=== PATIENT | female | born 1955 | race Caucasian/White ===

== ENCOUNTER 2018-01-15 06:10 | Emergency (ER) | payer MEDICARE, BC ==
[~2018-01-15] VITALS: Ht 170.2 cm; Wt 69.2 kg
[2018-01-15] MEDS ORDERED: LORazepam 1MG TABLET ONE (06:53)
[2018-01-15 06:59] LABS: BASOPHILS # (AUTO) 0.07 x10^3/uL (0-0.1); BASOPHILS % (AUTO) 1 % (0-1); EOSINOPHILS # (AUTO) 0.14 x10^3/uL (0-0.4); EOSINOPHILS % (AUTO) 2 % (1-7); LYMPHOCYTES # (AUTO) 2.73 x10^3/uL (1-3.4); LYMPHOCYTES % (AUTO) 34 % (22-44); MD NO; MEAN CORPUSCULAR HEMOGLOBIN 30.9 pg (27.0-34.8); MEAN CORPUSCULAR HGB CONC 34.2 g/dL (32.4-35.8); MEAN CORPUSCULAR VOLUME 90.5 fL (80-100); MEAN PLATELET VOLUME 7.2 fL (7.4-10.4); MONOCYTES # (AUTO) 0.54 x10^3/uL (0.2-0.8); MONOCYTES % (AUTO) 7 % (2-9); NEUTROPHILS # (AUTO) 4.48 x10^3/uL (1.8-6.8); NEUTROPHILS % (AUTO) 56 % (42-75); PLATELET COUNT 314 x10^3/uL (130-400); RED BLOOD COUNT 3.94 x10^6/uL (3.82-5.3)
[2018-01-15] MEDS ORDERED: LORazepam 1MG TABLET PO ONE (07:00)
[2018-01-15 07:12] LABS: ALANINE AMINOTRANSFERASE 20 U/L (12-78); ALBUMIN 3.7 g/dL (3.4-5.0); ANION GAP 6 mmol/L (5-15); CALCIUM 9.1 mg/dL (8.5-10.1); CHLORIDE 111 mmol/L (98-107); CREATININE 0.74 mg/dL (0.55-1.02)
[2018-01-15 07:14] LABS: ALKALINE PHOSPHATASE 104 U/L (45-117); BILIRUBIN,TOTAL 0.4 mg/dL (0.2-1.0); TOTAL PROTEIN 7.1 g/dL (6.4-8.2)
[2018-01-15 08:10] LABS: MICROSCOPIC AUTO
[2018-01-15 08:12] LABS: T4 (THYROXINE) 7.1 mcg/dL (4.8-13.9); THYROID STIMULATING HORMONE 3.26 mIU/L (0.358-3.740)
[2018-01-15 08:13] LABS: CULTURE INDICATED? NO
[2018-01-15 09:23] VITALS: BP 96/54
== END 2018-01-15 09:25 | disposition home or self-care (01) ==
LOC: ED 06:54
DX: R25.1 Tremor, unspecified (principal); R53.1 Weakness; F17.200 Nicotine dependence, unspecified, uncomplicated
CPT/HCPCS: 36415; 70450; 80053; 81001; 84436; 84443; 85025; 93005; 99285